=== PATIENT | female | born 1960 | race Caucasian/White ===

== ENCOUNTER 2018-04-14 21:26 | Emergency (ER) | payer MEDICAID ==
[~2018-04-14] VITALS: Ht 154.9 cm; Wt 64.0 kg
[2018-04-14] MEDS ORDERED: ipratropium/albuterol 3ml nebule NEB ONE (21:55)
[2018-04-14] MEDS ORDERED: azithromycin 250mg tablet PO ONE (21:55)
[2018-04-14] MEDS ORDERED: benzonatate 100mg capsule PO ONE (21:55)
[2018-04-14] MEDS ORDERED: oseltamivir phos 75mg capsule PO ONE (21:55)
--- NOTE | 2018-04-14 22:10 | NUR ---
RT AT BEDSIDE
[2018-04-14] MEDS ORDERED: TAM75C PO (22:39)
[2018-04-14] MEDS ORDERED: AZIT-63 PO (22:39)
[2018-04-14] MEDS ORDERED: ALBU8.5H8 IH (22:45)
[2018-04-14] MEDS ORDERED: ondansetron 4mg rapidly disintigrating tab PO ONE (23:00)
[2018-04-14 23:02] VITALS: BP 137/68
== END 2018-04-14 23:00 | disposition home or self-care (01) ==
LOC: ER 21:26
DX: J10.1 Influenza due to other identified influenza virus with other respiratory manifestations (principal); J40 Bronchitis, not specified as acute or chronic; Z79.899 Other long term (current) drug therapy; Z56.0 Unemployment, unspecified
CPT/HCPCS: 71045; 93005; 94640; 94760; 99284

== ENCOUNTER 2018-09-30 20:30 | Emergency (ER) | payer MEDICAID ==
[~2018-09-30] VITALS: Ht 152.4 cm; Wt 59.5 kg
[~2018-09-30 20:30] MED LIST: ALBU8.5H8 IH; CEPH250T PO; ONDA4TAB6 PO
[2018-09-30 21:11] LABS: CLARITY,URINE CLEAR (Clear); COLOR,URINE YELLOW (Yellow); GLUCOSE, URINE NEGATIVE (Neg); KETONES,URINE NEGATIVE (Neg); LEUKOCYTE ESTERASE ,URINE NEGATIVE (Neg); NITRITES, URINE NEGATIVE (Neg); OCCULT BLOOD,URINE NEGATIVE (Neg); PH,URINE 6.5 (4.8-8.0); PROTEIN,URINE 30 mg/dl (Neg); UROBILINOGEN,URINE 0.2 E.U/dL (0.2-1.0)
[2018-09-30 21:12] LABS: UA COLLECTION TYPE VOIDED
[2018-09-30 21:17] LABS: BASOPHILS # (AUTO) 0.1 X10'3 (0-0.2); BASOPHILS % (AUTO) 0.6 % (0-1); EOSINOPHILS # (AUTO) 0.1 X10'3 (0-0.9); EOSINOPHILS % (AUTO) 0.5 % (0-6); HEMATOCRIT 36.1 % (35.0-45.0); HEMOGLOBIN 11.2 g/dl (12.0-16.0); LYMPHOCYTES # (AUTO) 1.4 X10'3 (1.1-4.8); LYMPHOCYTES % (AUTO) 12.5 % (21-51); MEAN CORPUSCULAR HEMOGLOBIN 18.7 PG (27.0-31.0); MEAN CORPUSCULAR VOLUME 60.3 FL (78-98); MEAN PLATELET VOLUME 7.2 FL (7.4-10.4); MONOCYTES # (AUTO) 0.5 X10'3 (0-0.9); MONOCYTES % (AUTO) 4.9 % (2-12); NEUTROPHILS # (AUTO) 8.9 X10'3 (1.8-7.7); NEUTROPHILS % (AUTO) 81.5 % (42-75); PLATELET COUNT 340 X10'3 (140-440); RED BLOOD COUNT 5.99 X10'6 (4.20-5.60); RED CELL DISTRIBUTION WIDTH 14.7 % (11.5-14.5); WHITE BLOOD COUNT 10.9 X10'3 (4.5-11.0)
[2018-09-30 21:18] LABS: BACTERIA,URINE NONE SEEN /HPF (Neg); MUCUS STRANDS FEW /LPF (Neg); RBC,URINE NONE SEEN /HPF (0-2); SQUAMOUS EPITHELIAL CELL,UR FEW /LPF (FEW); WBC,URINE 0-4 /HPF (0-4)
[2018-09-30 21:33] LABS: ALANINE AMINOTRANSFERASE 21 U/L (12-78); ALBUMIN 3.2 G/DL (3.4-5.0); ALBUMIN/GLOBULIN RATIO 0.7 (1.1-1.5); ALKALINE PHOSPHATASE 96 IU/L (46-116); ANION GAP 9 (8-16); ASPARTATE AMINO TRANSFERASE 16 U/L (10-37); BILIRUBIN,TOTAL 0.3 MG/DL (0.1-1.0); BLOOD UREA NITROGEN 10 MG/DL (7-18); BUN/CREATININE RATIO 13.5 (6.6-38.0); CALCIUM 8.3 MG/DL (8.5-10.1); CHLORIDE 106 MMOL/L (99-107); CREATININE 0.74 MG/DL (0.40-0.90); GLUCOSE 124 MG/DL (70-104); POTASSIUM 3.3 MMOL/L (3.5-5.1); SODIUM 140 MMOL/L (135-145); TOTAL CARBON DIOXIDE 25.2 MMOL/L (24-32); TOTAL PROTEIN 7.7 G/DL (6.4-8.2); eGFR 80 ML/MIN
[2018-09-30 22:18] LABS: HYPOCHROMASIA 1+; MICROCYTOSIS 2+; PLATELET ESTIMATE NORMAL
[2018-09-30] MEDS ORDERED: ketorolac trometh. 30mg/ml inj. IV ONE (22:20)
[2018-09-30] MEDS ORDERED: normal saline 1000ML IV soln IVB ONE (22:20)
[2018-09-30] MEDS ORDERED: ondansetron/PF 4mg/2ml inj IV ONE (22:20)
[2018-09-30 23:35] VITALS: BP 126/69
[2018-09-30] MEDS ORDERED: HYDR-4383 PO (23:38)
[2018-09-30] MEDS ORDERED: ONDA4TAB6 PO (23:38)
[2018-09-30] MEDS ORDERED: AMOX-419 PO (23:38)
== END 2018-09-30 23:56 | disposition home or self-care (01) ==
LOC: ER 20:30
DX: K52.9 Noninfective gastroenteritis and colitis, unspecified (principal); Z79.899 Other long term (current) drug therapy; Z87.442 Personal history of urinary calculi; Z56.0 Unemployment, unspecified
CPT/HCPCS: 36415; 74176; 80053; 81001; 85025; 85610; 96361; 96374; 96375; 99284; J1885; J2405; J7030

== ENCOUNTER 2019-03-06 17:08 | Emergency (ER) | payer MEDICAID ==
[~2019-03-06] VITALS: Ht 149.9 cm; Wt 70.0 kg
[~2019-03-06 17:08] MED LIST changes: -CEPH250T PO; +HYDR-4383 PO
[2019-03-06 19:14] VITALS: BP 135/80
== END 2019-03-06 19:17 | disposition home or self-care (01) ==
LOC: ER 17:10
DX: J35.8 Other chronic diseases of tonsils and adenoids (principal); R42 Dizziness and giddiness; Z79.899 Other long term (current) drug therapy; Z56.0 Unemployment, unspecified
CPT/HCPCS: 70360; 99283

== ENCOUNTER 2019-06-19 12:57 | Emergency (ER) | payer MEDICAID ==
[~2019-06-19] VITALS: Ht 160 cm; Wt 54.5 kg
[2019-06-19 12:58] VITALS: BP 179/82
== END 2019-06-19 13:56 | disposition home or self-care (01) ==
LOC: ER 12:58
DX: J06.9 Acute upper respiratory infection, unspecified (principal); R51 Headache; Z56.0 Unemployment, unspecified
CPT/HCPCS: 99281

== ENCOUNTER 2020-05-24 10:52 | Emergency (ER) | payer MEDICAID ==
[~2020-05-24] VITALS: Ht 152.4 cm; Wt 61.5 kg
[2020-05-24] MEDS ORDERED: LIDOcaine 1% W/epiNEPHrine 1:200,000 10ml vial IJ ONE (12:25)
[2020-05-24] MEDS ORDERED: SULF1TAB45 PO (12:55)
[2020-05-24] MEDS ORDERED: CEPH250T PO (12:55)
[2020-05-24 13:18] VITALS: BP 161/67
== END 2020-05-24 13:19 | disposition home or self-care (01) ==
LOC: ER 10:53
DX: L02.01 Cutaneous abscess of face (principal); Z56.0 Unemployment, unspecified; Z79.2 Long term (current) use of antibiotics; Z79.899 Other long term (current) drug therapy
CPT/HCPCS: 10060; 87070; 99283

== ENCOUNTER 2020-07-24 17:35 | Emergency (ER) | payer MEDICAID ==
[~2020-07-24] VITALS: Ht 152.4 cm; Wt 64.4 kg
[2020-07-24 18:34] LABS: BASOPHILS # (AUTO) 0.1 X10'3 (0-0.2); BASOPHILS % (AUTO) 0.4 % (0-1); EOSINOPHILS % (AUTO) 0.2 % (0-6); HEMATOCRIT 37.2 % (35.0-45.0); HEMOGLOBIN 11.7 g/dl (12.0-16.0); LYMPHOCYTES # (AUTO) 1.2 X10'3 (1.1-4.8); LYMPHOCYTES % (AUTO) 9.1 % (21-51); MEAN CORPUSCULAR HEMOGLOBIN 19.2 PG (27.0-31.0); MEAN CORPUSCULAR HGB CONC 31.3 g/dL (33.0-36.5); MEAN CORPUSCULAR VOLUME 61.3 FL (78-98); MEAN PLATELET VOLUME 8.5 FL (7.4-10.4); MONOCYTES # (AUTO) 0.7 X10'3 (0-0.9); MONOCYTES % (AUTO) 5.5 % (2-12); NEUTROPHILS # (AUTO) 11.5 X10'3 (1.8-7.7); NEUTROPHILS % (AUTO) 84.8 % (42-75); PLATELET COUNT 294 X10'3 (140-440); RED BLOOD COUNT 6.07 X10'6 (4.20-5.60); RED CELL DISTRIBUTION WIDTH 15.3 % (11.5-14.5); WHITE BLOOD COUNT 13.6 X10'3 (4.5-11.0)
[2020-07-24 19:08] LABS: ALANINE AMINOTRANSFERASE 26 U/L (12-78); ALBUMIN/GLOBULIN RATIO 0.9 (1.1-1.5); ALKALINE PHOSPHATASE 110 IU/L (46-116); ANION GAP 9 (8-16); ASPARTATE AMINO TRANSFERASE 21 U/L (10-37); BILIRUBIN,TOTAL 0.3 MG/DL (0.1-1.0); BLOOD UREA NITROGEN 16 MG/DL (7-18); BUN/CREATININE RATIO 21.6 (6.6-38.0); CALCIUM 9.2 MG/DL (8.5-10.1); CHLORIDE 104 MMOL/L (99-107); CREATININE 0.74 MG/DL (0.40-0.90); GLUCOSE 113 MG/DL (70-104); POTASSIUM 4.1 MMOL/L (3.5-5.1); SODIUM 141 MMOL/L (135-145); TOTAL CARBON DIOXIDE 28.5 MMOL/L (24-32); TOTAL PROTEIN 8.4 G/DL (6.4-8.2); eGFR 80 ML/MIN
[2020-07-24] MEDS ORDERED: ondansetron 4mg rapidly disintigrating tab PO ONE (20:55)
[2020-07-24] MEDS ORDERED: normal saline 1000ml 1,000 ML IV ONE (21:10)
[2020-07-24] MEDS ORDERED: proCHLORperazine 10 MG/2 ml inj IV ONE (21:10)
[2020-07-24] MEDS ORDERED: diphenhydrAMINE 50 mg/ml inj IV ONE (21:10)
[2020-07-24] MEDS ORDERED: ketorolac tromethamine 15mg/ml inj. IV ONE (21:50)
[2020-07-24 22:00] LABS: PLATELET ESTIMATE NORMAL
[2020-07-24 22:01] LABS: HYPOCHROMASIA 2+; MICROCYTOSIS 2+
[2020-07-24 22:02] LABS: POLYCHROMASIA FEW
[2020-07-24 23:11] VITALS: BP 142/69
== END 2020-07-24 23:14 | disposition home or self-care (01) ==
LOC: ER 17:35
DX: G43.909 Migraine, unspecified, not intractable, without status migrainosus (principal); Z79.899 Other long term (current) drug therapy; Z56.0 Unemployment, unspecified
CPT/HCPCS: 36415; 70450; 71045; 80053; 83880; 84484; 85008; 85025; 93005; 96374; 96375; 99285; J0780; J1200; J1885; J7030

== ENCOUNTER 2020-11-24 19:48 | Emergency (ER) | payer MEDICAID ==
[~2020-11-24] VITALS: Ht 152.4 cm; Wt 65.3 kg
[~2020-11-24 19:48] MED LIST changes: +ALBU8.5H17 IH; -ALBU8.5H8 IH
[2020-11-24 20:52] LABS: BASOPHILS % (AUTO) 0.7 % (0-1); EOSINOPHILS # (AUTO) 0.1 X10'3 (0-0.9); EOSINOPHILS % (AUTO) 1.5 % (0-6); LYMPHOCYTES # (AUTO) 1.6 X10'3 (1.1-4.8); LYMPHOCYTES % (AUTO) 26.1 % (21-51); MEAN PLATELET VOLUME 7.9 FL (7.4-10.4); MONOCYTES # (AUTO) 0.5 X10'3 (0-0.9); MONOCYTES % (AUTO) 8.1 % (2-12); NEUTROPHILS # (AUTO) 3.8 X10'3 (1.8-7.7); NEUTROPHILS % (AUTO) 63.6 % (42-75); PLATELET COUNT 293 X10'3 (140-440)
[2020-11-24 21:10] LABS: ALANINE AMINOTRANSFERASE 36 U/L (12-78); ALKALINE PHOSPHATASE 104 IU/L (46-116); ANION GAP 10 (8-16); ASPARTATE AMINO TRANSFERASE 22 U/L (10-37); BILIRUBIN,TOTAL 0.4 MG/DL (0.1-1.0); BLOOD UREA NITROGEN 12 MG/DL (7-18); BUN/CREATININE RATIO 15.2 (6.6-38.0); CALCIUM 8.9 MG/DL (8.5-10.1); CHLORIDE 105 MMOL/L (99-107); CREATININE 0.79 MG/DL (0.40-0.90); GLUCOSE 94 MG/DL (70-104); LIPASE 90 U/L (73-393); POTASSIUM 4.2 MMOL/L (3.5-5.1); SODIUM 143 MMOL/L (135-145); TOTAL CARBON DIOXIDE 28.1 MMOL/L (24-32); TOTAL PROTEIN 8.1 G/DL (6.4-8.2); eGFR 74 ML/MIN
[2020-11-24 21:41] LABS: HEMOGLOBIN 12.9 g/dl (12.0-16.0); MEAN CORPUSCULAR HGB CONC 33.9 g/dL (33.0-36.5); MEAN CORPUSCULAR VOLUME 58.8 FL (78-98); RED BLOOD COUNT 6.47 X10'6 (4.20-5.60); RED CELL DISTRIBUTION WIDTH 14.7 % (11.5-14.5)
[2020-11-24] MEDS ORDERED: acetaminophen 325mg tablet PO ONE (21:45)
[2020-11-24] MEDS ORDERED: ketorolac trometh inj. 60 MG/2 ML VIAL IM ONE (21:45)
[2020-11-24] MEDS ORDERED: ondansetron 4mg rapidly disintigrating tab PO ONE (21:45)
[2020-11-24] MEDS ORDERED: ketorolac trometh. 30mg/ml inj. IM ONE (21:50)
[2020-11-24 23:02] LABS: CLARITY,URINE CLEAR (Clear); COLOR,URINE YELLOW (Yellow); GLUCOSE, URINE NEGATIVE (Neg); KETONES,URINE NEGATIVE (Neg); LEUKOCYTE ESTERASE ,URINE SMALL (Neg); NITRITES, URINE NEGATIVE (Neg); OCCULT BLOOD,URINE NEGATIVE (Neg); PH,URINE 5.5 (4.8-8.0); PROTEIN,URINE NEGATIVE (Neg); UROBILINOGEN,URINE 0.2 E.U/dL (0.2-1.0)
[2020-11-24 23:03] LABS: UA COLLECTION TYPE CLN CATCH MIDSTREAM
[2020-11-24 23:16] LABS: BACTERIA,URINE NONE SEEN /HPF (Neg); MUCUS STRANDS FEW /LPF (Neg); RBC,URINE 0-2 /HPF (0-2); SQUAMOUS EPITHELIAL CELL,UR FEW /LPF (FEW)
[2020-11-25] MEDS ORDERED: NITR-79 PO (00:49)
[2020-11-25 01:34] VITALS: BP 164/82
[2020-11-25 03:11] LABS: PLATELET ESTIMATE NORMAL
[2020-11-25 03:12] LABS: MICROCYTOSIS 3+
[2020-11-25 03:13] LABS: ELLIPTOCYTES 1+; TARGET CELLS FEW
[2020-11-25 03:16] LABS: SPHEROCYTES 2+
[2020-11-25] MEDS ORDERED: nitrofurantoin macrocrystal 100mg capsule PO SCH (07:30)
== END 2020-11-25 01:35 | disposition home or self-care (01) ==
LOC: ER 19:49
DX: N39.0 Urinary tract infection, site not specified (principal); Z20.822 Contact with and (suspected) exposure to COVID-19; R51.9 Headache, unspecified; Z79.899 Other long term (current) drug therapy; Z56.0 Unemployment, unspecified
CPT/HCPCS: 36415; 71045; 80053; 81001; 83690; 84484; 85008; 85025; 87635; 96372; 99284; C9803; J1885

== ENCOUNTER 2021-01-03 10:09 | Emergency (ER) | payer MEDICAID ==
[~2021-01-03] VITALS: Ht 154.9 cm; Wt 54.5 kg
[~2021-01-03 10:09] MED LIST changes: +NITR-79 PO
[2021-01-03 10:28] VITALS: BP 156/75
== END 2021-01-03 13:23 | disposition home or self-care (01) ==
LOC: ER 10:09
DX: R50.9 Fever, unspecified (principal); R05.9 Cough, unspecified; H53.9 Unspecified visual disturbance; Z56.0 Unemployment, unspecified; Z20.822 Contact with and (suspected) exposure to COVID-19
CPT/HCPCS: 36415; 71045; 82948; 99284; U0003; U0005

== ENCOUNTER 2021-02-04 12:35 | Emergency (ER) | payer MEDICAID | END 2021-02-04 13:36 | disposition left against medical advice (07) | LOC: ER 12:35 | DX: R50.9 Fever, unspecified (principal); Z53.21 Procedure and treatment not carried out due to patient leaving prior to being seen by health care provider ==

== ENCOUNTER 2021-12-22 16:39 | Emergency (ER) | payer MEDICAID ==
[~2021-12-22] VITALS: Ht 152.4 cm; Wt 63.6 kg
[2021-12-22 16:54] VITALS: BP 194/88
[2021-12-22] MEDS ORDERED: ketorolac trometh. 30mg/ml inj. IM ONE (18:20)
== END 2021-12-22 19:11 | disposition home or self-care (01) ==
LOC: ER 16:39
DX: S93.402A Sprain of unspecified ligament of left ankle, initial encounter (principal); Z56.0 Unemployment, unspecified; X50.1XXA Overexertion from prolonged static or awkward postures, initial encounter; Y93.89 Activity, other specified; Y92.89 Other specified places as the place of occurrence of the external cause; Y99.8 Other external cause status
CPT/HCPCS: 73610; 96372; 99283; J1885; A6449

== ENCOUNTER 2022-01-01 09:26 | Emergency (ER) | payer MEDICAID ==
[~2022-01-01] VITALS: Ht 152.4 cm; Wt 65.0 kg
[2022-01-01 09:38] VITALS: BP 149/65
== END 2022-01-01 12:00 | disposition home or self-care (01) ==
LOC: ER 09:27
DX: M79.673 Pain in unspecified foot (principal); Z87.440 Personal history of urinary (tract) infections; Z56.0 Unemployment, unspecified
CPT/HCPCS: 99284

== ENCOUNTER 2022-02-12 16:58 | Emergency (ER) | payer MEDICAID ==
[~2022-02-12] VITALS: Ht 152.4 cm; Wt 65.1 kg
[2022-02-12] MEDS ORDERED: acetaminophen 325mg tablet PO ONE (18:25)
[2022-02-12 23:34] LABS: BASOPHILS # (AUTO) 0.1 X10'3 (0-0.2); BASOPHILS % (AUTO) 0.7 % (0-1); EOSINOPHILS % (AUTO) 0.3 % (0-6); HEMATOCRIT 36.1 % (35.0-45.0); HEMOGLOBIN 11.2 g/dl (12.0-16.0); LYMPHOCYTES # (AUTO) 0.4 X10'3 (1.1-4.8); LYMPHOCYTES % (AUTO) 5.6 % (21-51); MEAN CORPUSCULAR HEMOGLOBIN 18.9 PG (27.0-31.0); MEAN CORPUSCULAR HGB CONC 30.9 g/dL (33.0-36.5); MEAN CORPUSCULAR VOLUME 61.2 FL (78-98); MEAN PLATELET VOLUME 7.5 FL (7.4-10.4); MONOCYTES # (AUTO) 0.6 X10'3 (0-0.9); MONOCYTES % (AUTO) 7.9 % (2-12); NEUTROPHILS # (AUTO) 6.6 X10'3 (1.8-7.7); NEUTROPHILS % (AUTO) 85.5 % (42-75); PLATELET COUNT 225 X10'3 (140-440); WHITE BLOOD COUNT 7.7 X10'3 (4.5-11.0)
[2022-02-12 23:48] LABS: ALANINE AMINOTRANSFERASE 21 U/L (12-78); ALBUMIN 3.6 G/DL (3.4-5.0); ALBUMIN/GLOBULIN RATIO 0.9 (1.1-1.5); ALKALINE PHOSPHATASE 106 IU/L (46-116); ANION GAP 11 (8-16); ASPARTATE AMINO TRANSFERASE 22 U/L (10-37); BILIRUBIN,TOTAL 0.4 MG/DL (0.1-1.0); BLOOD UREA NITROGEN 13 MG/DL (7-18); CALCIUM 8.8 MG/DL (8.5-10.1); CHLORIDE 102 MMOL/L (99-107); CREATININE 0.93 MG/DL (0.40-0.90); GLUCOSE 168 MG/DL (70-104); MAGNESIUM 1.7 MG/DL (1.5-2.4); POTASSIUM 3.5 MMOL/L (3.5-5.1); SODIUM 137 MMOL/L (135-145); TOTAL CARBON DIOXIDE 24.3 MMOL/L (24-32); TOTAL PROTEIN 7.4 G/DL (6.4-8.2); eGFR 61 ML/MIN
[2022-02-13 01:11] LABS: PLATELET ESTIMATE NORMAL
[2022-02-13 01:13] LABS: ELLIPTOCYTES FEW; MICROCYTOSIS FEW; SPHEROCYTES 1+
[2022-02-13 01:14] LABS: LARGE PLATELETS FEW; TARGET CELLS FEW
[2022-02-13 01:40] LABS: CLARITY,URINE CLEAR (Clear); COLOR,URINE YELLOW (Yellow); GLUCOSE, URINE NEGATIVE (Neg); KETONES,URINE 15 mg/dl (Neg); LEUKOCYTE ESTERASE ,URINE SMALL (Neg); NITRITES, URINE NEGATIVE (Neg); OCCULT BLOOD,URINE NEGATIVE (Neg); PROTEIN,URINE NEGATIVE (Neg); UROBILINOGEN,URINE 0.2 E.U/dL (0.2-1.0)
[2022-02-13 01:48] LABS: UA COLLECTION TYPE VOIDED
[2022-02-13 01:51] LABS: BACTERIA,URINE FEW /HPF (Neg); MUCUS STRANDS FEW /LPF (Neg); RBC,URINE 0-2 /HPF (0-2); SQUAMOUS EPITHELIAL CELL,UR FEW /LPF (FEW)
[2022-02-13 01:52] LABS: WBC CLUMPS,URINE FEW /HPF (NEGATIVE)
[2022-02-13] MEDS ORDERED: CEPH-585 PO (03:02)
[2022-02-13] MEDS ORDERED: acetaminophen 325mg tablet PO ONE (03:10)
[2022-02-13 03:22] VITALS: BP 134/64
== END 2022-02-13 03:29 | disposition home or self-care (01) ==
LOC: ER 16:59
DX: N39.0 Urinary tract infection, site not specified (principal); Z20.822 Contact with and (suspected) exposure to COVID-19; R51.9 Headache, unspecified; R50.9 Fever, unspecified; R05.9 Cough, unspecified; J02.9 Acute pharyngitis, unspecified; Z87.440 Personal history of urinary (tract) infections; Z56.0 Unemployment, unspecified; Z79.2 Long term (current) use of antibiotics; Z79.899 Other long term (current) drug therapy
CPT/HCPCS: 36415; 71045; 80053; 81001; 83735; 85008; 85025; 87040; 87502; 87503; 87635; 99285; C2617; C9803

== ENCOUNTER 2023-05-26 20:24 | Emergency (ER) | payer MEDICAID ==
[~2023-05-26] VITALS: Ht 154.9 cm; Wt 65.4 kg
[2023-05-26] MEDS ORDERED: ketorolac trometh inj. 60 MG/2 ML VIAL IM ONE (20:40)
[2023-05-26] MEDS: ketorolac tromethamine 15mg/ml inj. IM ONE (21:20)
[2023-05-26] MEDS: dexamethasone sod phosphate 10mg/ml inj IM STA (21:21)
[2023-05-26] MEDS ORDERED: ONDA4TAB12 PO (22:55)
[2023-05-26] MEDS ORDERED: PRED20TA PO ×2 (22:55→23:20)
[2023-05-26] MEDS ORDERED: DIPH25CA83 PO (22:55)
[2023-05-26] MEDS ORDERED: DIPH-735 PO (23:20)
[2023-05-26] MEDS ORDERED: ONDA-103 PO (23:20)
[2023-05-26 23:25] VITALS: BP 148/79; PULSE 70; RESP 16; TEMP 98; O2SAT 99
== END 2023-05-26 23:26 | disposition home or self-care (01) ==
LOC: ER 20:26
DX: B34.9 Viral infection, unspecified (principal); Z20.822 Contact with and (suspected) exposure to COVID-19; Z79.899 Other long term (current) drug therapy
CPT/HCPCS: 36415; 71045; 87502; 87503; 87811; 96372; 99284; J1100; J1885

== ENCOUNTER 2023-06-21 07:05 | Emergency (ER) | payer MEDICAID ==
[~2023-06-21] VITALS: Ht 154.9 cm; Wt 66.5 kg
[~2023-06-21 07:05] MED LIST changes: +DIPH-735 PO; +DIPH25CA83 PO; +ONDA-103 PO; +ONDA4TAB12 PO
[2023-06-21 07:13] VITALS: TEMP 97.8
[2023-06-21 08:14] LABS: BILIRUBIN,URINE NEGATIVE (Neg); CLARITY,URINE CLEAR (Clear); COLOR,URINE YELLOW (Yellow); GLUCOSE, URINE NEGATIVE (Neg); KETONES,URINE NEGATIVE (Neg); LEUKOCYTE ESTERASE ,URINE NEGATIVE (Neg); NITRITES, URINE NEGATIVE (Neg); OCCULT BLOOD,URINE NEGATIVE (Neg); PROTEIN,URINE NEGATIVE (Neg); URINE HCG NEGATIVE (NEG); UROBILINOGEN,URINE 0.2 E.U/dL (0.2-1.0)
[2023-06-21 08:18] LABS: UA COLLECTION TYPE CLN CATCH MIDSTREAM
[2023-06-21] MEDS: glycopyrrolate 0.2mg/ml inj IV ONE (08:31)
[2023-06-21] MEDS: ketorolac tromethamine 15mg/ml inj. IV ONE (08:31)
[2023-06-21] MEDS: ondansetron/PF 4mg/2ml inj IV ONE (08:32)
[2023-06-21] MEDS: normal saline 1000ML IV soln IVB ONE (08:32)
[2023-06-21 08:51] LABS: ALANINE AMINOTRANSFERASE 27 U/L (12-78); ALBUMIN 3.7 G/DL (3.4-5.0); ALBUMIN/GLOBULIN RATIO 0.9 (1.1-1.5); ALKALINE PHOSPHATASE 94 IU/L (46-116); ANION GAP 10 (8-16); ASPARTATE AMINO TRANSFERASE 21 U/L (10-37); BILIRUBIN,TOTAL 0.7 MG/DL (0.1-1.0); BLOOD UREA NITROGEN 14 MG/DL (7-18); BUN/CREATININE RATIO 17.1 (10.0-20.0); CALCIUM 8.8 MG/DL (8.5-10.1); CHLORIDE 104 MMOL/L (99-107); CREATININE 0.82 MG/DL (0.40-0.90); GLUCOSE 129 MG/DL (70-104); LIPASE 30 U/L (16-77); POTASSIUM 3.7 MMOL/L (3.5-5.1); SODIUM 139 MMOL/L (135-145); TOTAL CARBON DIOXIDE 25.1 MMOL/L (24-32); TOTAL PROTEIN 7.9 G/DL (6.4-8.2); eCRCL 52 ML/MIN; eGFR 70 ML/MIN
[2023-06-21 09:01] LABS: BASOPHILS % (AUTO) 0.1 % (0-1); EOSINOPHILS % (AUTO) 0.1 % (0-6); HEMATOCRIT 35.7 % (35.0-45.0); HEMOGLOBIN 11.4 g/dl (12.0-16.0); LYMPHOCYTES # (AUTO) 0.2 X10'3 (1.1-4.8); LYMPHOCYTES % (AUTO) 2.2 % (21-51); MEAN CORPUSCULAR HEMOGLOBIN 19.2 PG (27.0-31.0); MEAN CORPUSCULAR HGB CONC 31.9 g/dL (33.0-36.5); MEAN CORPUSCULAR VOLUME 60.3 FL (78-98); MEAN PLATELET VOLUME 7.6 FL (7.4-10.4); MONOCYTES # (AUTO) 0.2 X10'3 (0-0.9); MONOCYTES % (AUTO) 1.9 % (2-12); NEUTROPHILS # (AUTO) 11.1 X10'3 (1.8-7.7); NEUTROPHILS % (AUTO) 95.7 % (42-75); PLATELET COUNT 265 X10'3 (140-440); RED BLOOD COUNT 5.92 X10'6 (4.20-5.60); RED CELL DISTRIBUTION WIDTH 15.8 % (11.5-14.5); WHITE BLOOD COUNT 11.5 X10'3 (4.5-11.0)
[2023-06-21 09:49] LABS: TOTAL CELLS COUNTED 100
[2023-06-21 10:02] LABS: ELLIPTOCYTES FEW; HYPOCHROMASIA 1+; MICROCYTOSIS 2+; PLATELET ESTIMATE NORMAL; POLYCHROMASIA FEW; STOMATOCYTES FEW; TEAR DROP CELLS 1+
[2023-06-21] MEDS ORDERED: iohexol 300mg/ml 100ml inj. ONE (10:24)
[2023-06-21] MEDS ORDERED: ONDA4TAB12 PO (11:55)
[2023-06-21] MEDS ORDERED: DICY10CA88 PO (11:55)
[2023-06-21] MEDS: CefTRIAXone/D5W-Rocephin 1gm 50 ML IV ONE (12:11)
[2023-06-21 12:42] VITALS: BP 132/80; PULSE 90; RESP 18; O2SAT 97
== END 2023-06-21 12:44 | disposition home or self-care (01) ==
LOC: ER 07:06
DX: R10.13 Epigastric pain (principal); R11.10 Vomiting, unspecified; R19.7 Diarrhea, unspecified; Z56.0 Unemployment, unspecified; Z79.2 Long term (current) use of antibiotics; Z79.899 Other long term (current) drug therapy
CPT/HCPCS: 36415; 74177; 80053; 81003; 81025; 83690; 84145; 85007; 85025; 96361; 96374; 96375; 99285; J0696; J1885; J2405; J3490; J7030; Q9967

== ENCOUNTER 2023-08-17 23:03 | Emergency (ER) | payer MEDICAID ==
[~2023-08-17] VITALS: Ht 152.4 cm; Wt 65.0 kg
[2023-08-18] MEDS ORDERED: AZIT250T PO (01:22)
[2023-08-18] MEDS ORDERED: BENZ-38 PO (01:22)
[2023-08-18] MEDS: dexamethasone 4mg/ml inj IM ONE (01:58)
[2023-08-18] MEDS: azithromycin 250mg tablet PO ONE (01:58)
[2023-08-18 01:59] VITALS: BP 138/56; PULSE 86; RESP 20; TEMP 98.4; O2SAT 99
== END 2023-08-18 02:07 | disposition home or self-care (01) ==
LOC: ER 23:04
DX: R05.9 Cough, unspecified (principal); Z20.822 Contact with and (suspected) exposure to COVID-19; R68.83 Chills (without fever); J02.9 Acute pharyngitis, unspecified; Z88.8 Allergy status to other drugs, medicaments and biological substances; Z79.2 Long term (current) use of antibiotics; Z79.899 Other long term (current) drug therapy
CPT/HCPCS: 36415; 71045; 87502; 87503; 87811; 96372; 99284; J1100

== ENCOUNTER 2024-03-02 16:00 | Emergency (ER) | payer MEDICAID ==
[~2024-03-02] VITALS: Ht 157.5 cm; Wt 60.9 kg
[~2024-03-02 16:00] MED LIST changes: +AZIT250T PO; +ONDA-243 PO; -ONDA4TAB12 PO
[2024-03-02 16:03] VITALS: BP 132/59; PULSE 100; RESP 18; TEMP 97.5; O2SAT 99
[2024-03-02] MEDS ORDERED: AZIT250T83 PO (18:47)
[2024-03-02] MEDS: CefTRIAXone 1000mg IM Kit (w/lidocaine diluent) IM ONE (19:10)
== END 2024-03-02 19:15 | disposition home or self-care (01) ==
LOC: ER 16:00
DX: J18.9 Pneumonia, unspecified organism (principal)
CPT/HCPCS: 71045; 96372; 99283; J0696; A6449